=== PATIENT | female | born 1945 | race African-American/Black ===

== ENCOUNTER 2017-01-10 08:26 | Emergency (ER) | payer MEDICARE, OTHER ==
[~2017-01-10] VITALS: Ht 167.6 cm; Wt 85.0 kg
[~2017-01-10 08:26] MED LIST: AMLO2.5T PO; IBUP600T26 PO; IBUP800T23 PO; KCL20 PO; LISI10TA PO; LORTA5 PO; PHEN37.5 PO; UNK PAIN MED; [UNRECOGNIZED DRUG - CODE] XX
[2017-01-10 08:28] VITALS: BP 148/84; PULSE 78; RESP 16; TEMP 97.8; O2SAT 98
[2017-01-10 08:38] VITALS: BP 180/83; PULSE 68
[2017-01-10] MEDS ORDERED: IBUP800T23 PO (08:48)
[2017-01-10] MEDS ORDERED: LISI10TA PO (08:48)
[2017-01-10] MEDS ORDERED: AMLO2.5T PO (08:48)
[2017-01-10] MEDS ORDERED: HYDR-3533 PO (08:57)
--- NOTE | 2017-01-10 08:57 | PD ---
HPI Chief Complaint: Pain: Acute or Chronic Time Seen by Provider: 08:57 Travel History International Travel<30 days: No Contact w/Intl Traveler<30days: No Traveled to known affect area: No History of Present Illness HPI 71-year-old female presents to the emergency department for evaluation of right neck and right shoulder pain for 3 days. Patient states she had the x-ray had to lay on a hard table which she believes contributed to her pain. She also states that she has not been sleeping in her bed, but is sleeping in a recliner chair for the past month. She denies a traumatic injury. The pain is worse with movement. She is taking ibuprofen at home without improvement. Patient denies any paresthesias or anesthesias. No chest pain or shortness of breath. No abdominal pain. No nausea or vomiting. No fevers or chills. Patient reports history of hypertension. PFSH Past Medical History Diminished Hearing: No Hypertension: Yes Tetanus Vaccination: > 5 Years Menopausal: No : 1 Tubal Ligation: Yes Past Surgical History Genitourinary Surgery: Yes (tubal) Social History Alcohol Use: No Tobacco Use: No Substance Use: No Allergies-Medications (Allergen,Severity, Reaction): Coded Allergies: Chocolate (Verified Allergy, Mild, RASH, 01/10/17) Iodine (Verified Allergy, Mild, EDEMA, 01/10/17) Toradol (Verified Adverse Reaction, Mild, NAUSEA, 01/10/17) Reported Meds & Prescriptions Reported Meds & Active Scripts Active Lortab (Hydrocodone-Acetaminophen) 5-325 Mg Tab 1 Tab PO Q6H PRN Reported Lisinopril-Hctz 10-12.5 Mg Tab 1 Tab PO DAILY Ibuprofen 800 Mg Tab 800 Mg PO Q6HR PRN Amlodipine (Amlodipine Besylate) 2.5 Mg Tab 2.5 Mg PO DAILY Review of Systems Except as stated in HPI: all other systems reviewed are Neg Physical Exam Narrative GENERAL: Well-developed well-nourished elderly female elderly female patient. Afebrile. SKIN: Warm and dry. HEAD: Normocephalic. Atraumatic. EYES: No scleral icterus. No injection or drainage. NECK: Supple, trachea midline. No JVD or lymphadenopathy. CARDIOVASCULAR: Regular rate and rhythm without murmurs, gallops, or rubs. Left radial pulse is 2+. Capillary refill is less than 2 seconds to the digits of the right hand. RESPIRATORY: Breath sounds equal bilaterally. No accessory muscle use. Lungs sounds are clear to auscultation. GASTROINTESTINAL: Abdomen soft, non-tender, nondistended. MUSCULOSKELETAL: No cyanosis, or edema. Patient has full range of motion of the right shoulder, pain with movement. She has a normal grasp strength in the right hand. BACK: No obvious deformity. No CVA tenderness. Patient has full range of motion the cervical spine. However, with left lateral rotation, she notices pain in the right trapezius muscle. Data Data Last Documented VS Vital Signs Date Time Temp Pulse Resp B/P Pulse Ox O2 Delivery O2 Flow Rate FiO2 01/10/17 08:38 68 180/83 01/10/17 08:28 97.8 16 98 Orders Orphenadrine Inj (Norflex Inj) (01/10/17 09:00) [facility] Medical Decision Making Medical Screen Exam Complete: Yes Emergency Medical Condition: Yes Medical Record Reviewed: Yes Differential Diagnosis muscle strain versus muscle spasm versus torticollis Narrative Course 71-year-old female presents to the emergency department for evaluation of right neck and shoulder pain for 3 days without traumatic injury. Physical exam is reassuring is consistent with a muscle strain. Patient denies any other symptoms or complaints. Patient is given Norflex 60 mg IM in the emergency department. She'll be discharged with a short-term prescription for Lortab and Robaxin. She is instructed to not take these medications at the same time to prevent drowsiness. The patient verbalizes agreement and understanding. She is to follow with her primary care physician. She is also instructed to use a heating pad on low. Diagnosis Primary Impression: Strain of right trapezius muscle Qualified Code: S46.811A - Strain of right trapezius muscle, initial encounter Referrals: Primary Care Physician call for appointment Patient Instructions: General Instructions, Muscle Strain (ED) Additional Instructions: Heating pad on low for 20 minutes 4-5 times daily. Take Lortab as started as needed for moderate to severe pain. Take ibuprofen for mild to moderate pain. Take Robaxin as instructed as needed for muscle pain. Do not take at the same time as Lortab. Follow-up with your primary care physician. Return to the emergency department for any acute worsening of symptoms. Med/Other Pt SpecificInfo: Prescription(s) given Scripts Methocarbamol (Robaxin)500 Mg Oet429 Mg PO TID PRN (MUSCLE SPASM) #21 TAB Ref 0 Prov:Loren Garcia 01/10/17 Hydrocodone-Acetaminophen (Lortab)5-325 Mg Tab1 Tab PO Q6H PRN (PAIN) #8 TAB Ref 0 Prov:Eliseo Villeda MD 01/10/17 Disposition: 01 DISCHARGE HOME Condition: Stable Loren Garcia Jan 10, 2017 08:57
[2017-01-10] MEDS ORDERED: ORPHENADRINE INJ 60 MG/2 ML AMP IM ONE (09:00)
[2017-01-10] MEDS ORDERED: ROBA500T PO (09:04)
== END 2017-01-10 10:12 | disposition home or self-care (01) ==
LOC: NEPB 08:26
DX: S46.811A Strain of other muscles, fascia and tendons at shoulder and upper arm level, right arm, initial encounter (principal); I10 Essential (primary) hypertension; X58.XXXA Exposure to other specified factors, initial encounter
CPT/HCPCS: 96372; 99283; J2360

== ENCOUNTER 2017-01-12 08:32 | Emergency (ER) | payer MEDICARE, OTHER ==
[~2017-01-12] VITALS: Ht 172.7 cm; Wt 82.0 kg
[~2017-01-12 08:32] MED LIST changes: +HYDR-3533 PO; -IBUP600T26 PO; -KCL20 PO; -LORTA5 PO; -PHEN37.5 PO; +ROBA500T PO; -UNK PAIN MED; -[UNRECOGNIZED DRUG - CODE] XX
[2017-01-12 08:35] VITALS: BP 204/114; PULSE 74; RESP 20; TEMP 97.7; O2SAT 98
[2017-01-12] MEDS ORDERED: CYCL1TAB29 PO (09:21)
--- NOTE | 2017-01-12 09:22 | PD ---
HPI Chief Complaint: Pain: Acute or Chronic Time Seen by Provider: 09:09 Travel History International Travel<30 days: No Contact w/Intl Traveler<30days: No Traveled to known affect area: No History of Present Illness HPI Patient is a pleasant 71-year-old female presents emergency department with complaint of right sided neck pain. For the last now 4-5 days patient has had bad pain in the right side of her neck. She attributes this to having have an x-ray of her knee and having to lay on a hard x-ray table. She also states that she had to move a heavy recliner and was pushing this around the house. She did not lift it. 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 She describes the pain as a burning sensation in the right neck, radiating down the right arm. Associated tightness within the right shoulder/neck. States it hurts to lay on the right side of her body and therefore she is been sleeping in a recliner. Patient was seen here in our emergency department 2 days ago. She was given a dose of Norflex IM while in the ER and states that this was the most effective medication. She was discharged home with Robaxin and Lortab and states that both of these made her nauseous and she only took them once. Patient is back for persistent pain. She has not followed up with her PCP in the interim. Patient is incidentally hypertensive on exam, states that she has not been taking her antihypertensives for the last 2 days because she was nauseous from the Robaxin and have prescribed. She didn't want to "mix the medications". PFSH Past Medical History Hx Anticoagulant Therapy: No Cardiovascular Problems: Yes (HTN) Chemotherapy: No Cerebrovascular Accident: No Diabetes: No Diminished Hearing: No Hypertension: Yes Respiratory: No ?: Unknown Menopausal: No : 1 Tubal Ligation: Yes Past Surgical History Genitourinary Surgery: Yes (tubal) Hysterectomy: No Social History Alcohol Use: No Tobacco Use: No Substance Use: No Allergies-Medications (Allergen,Severity, Reaction): Coded Allergies: Chocolate (Verified Allergy, Mild, RASH, 01/12/17) Iodine (Verified Allergy, Mild, EDEMA, 01/12/17) Toradol (Verified Adverse Reaction, Mild, NAUSEA, 01/12/17) Reported Meds & Prescriptions Reported Meds & Active Scripts Active Flexeril (Cyclobenzaprine HCl) 10 Mg Tab 10 Mg PO TID PRN Robaxin (Methocarbamol) 500 Mg Tab 500 Mg PO TID PRN Lortab (Hydrocodone-Acetaminophen) 5-325 Mg Tab 1 Tab PO Q6H PRN Reported Lisinopril-Hctz 10-12.5 Mg Tab 1 Tab PO DAILY Ibuprofen 800 Mg Tab 800 Mg PO Q6HR PRN Amlodipine (Amlodipine Besylate) 2.5 Mg Tab 2.5 Mg PO DAILY Review of Systems Except as stated in HPI: all other systems reviewed are Neg Physical Exam Narrative GENERAL: Elderly female in no acute distress SKIN: Warm and dry. HEAD: Normocephalic. EYES: Pupils equal and round. No scleral icterus. No injection or drainage. ENT: No nasal bleeding or discharge. Mucous membranes pink and moist. NECK: Supple without bruit. No midline tenderness to palpation of the cervical spine. There is palpable spasm in the right trapezius muscle which reproduces pain, burning down the right arm. Range of motion of the neck is full, albeit with pain. CARDIOVASCULAR: Regular rate and rhythm. Hypertensive RESPIRATORY: No accessory muscle use. GASTROINTESTINAL: Obese MUSCULOSKELETAL: Moves all extremities normally. With external rotation and abduction greater than 90 of the right shoulder patient has reproducible pain. Distal sensation, pulses intact. NEUROLOGICAL: Awake and alert. Normal gait. Normal speech. PSYCHIATRIC: Appropriate mood and affect; insight and judgment normal. Data Data Last Documented VS Vital Signs Date Time Temp Pulse Resp B/P Pulse Ox O2 Delivery O2 Flow Rate FiO2 01/12/17 09:09 92 18 01/12/17 08:35 97.7 204/114 98 Room Air Orders Orphenadrine Inj (Norflex Inj) (01/12/17 09:30) MDM Medical Decision Making Medical Screen Exam Complete: Yes Emergency Medical Condition: Yes Medical Record Reviewed: Yes Differential Diagnosis 71-year-old female here with complaint of right sided neck pain radiating down into the right arm. Symptoms are classic with trapezius muscle spasm with associated cervical radiculopathy. Her symptoms are very much reproducible on exam consistent with musculoskeletal etiology. Narrative Course Patient given Norflex IM. Will discharge to home with Flexeril as patient states that this has been most beneficial for her in the past without side effects. Encouraged ice the area and follow-up with PCP if symptoms persist. Diagnosis Primary Impression: Trapezius muscle spasm Additional Impressions: Cervical radiculopathy Hypertension Qualified Code: I10 - Essential hypertension Referrals: Primary Care Physician as needed Additional Instructions: Stop the Robaxin and Lortab. Take Flexeril and ibuprofen instead. Ice the affected area 20 minutes at a time 3-4 times daily. Follow-up with primary care provider if symptoms persist and return to the ER for the warning signs discussed. Follow-up with primary care provider for blood pressure management. Med/Other Pt SpecificInfo: Prescription(s) given, Med Stopped Scripts Cyclobenzaprine (Flexeril)10 Mg Tab10 Mg PO TID PRN (SPASM) #30 TAB Ref 0 Prov:Tracy Hood MD 01/12/17 Disposition: 01 DISCHARGE HOME Condition: Stable Tracy Hood MD Jan 12, 2017 09:22
[2017-01-12] MEDS ORDERED: ORPHENADRINE INJ 60 MG/2 ML AMP IM ONE (09:30)
[2017-01-12 09:31] VITALS: BP 200/96; PULSE 68
[2017-01-12] MEDS ORDERED: MOTR200T4 PO (09:47)
== END 2017-01-12 10:24 | disposition home or self-care (01) ==
LOC: NEPA 08:32
DX: M62.838 Other muscle spasm (principal); M54.12 Radiculopathy, cervical region; I10 Essential (primary) hypertension
CPT/HCPCS: 96372; 99283; J2360

== ENCOUNTER 2018-02-14 17:41 | Emergency (ER) | payer MEDICARE, OTHER ==
[~2018-02-14] VITALS: Ht 167.6 cm; Wt 114.0 kg
[~2018-02-14 17:41] MED LIST changes: +CYCL10TA PO; +IBUP1TAB7 PO; -IBUP800T23 PO; +MOTR200T4 PO
[2018-02-14 18:08] VITALS: BP 207/87; PULSE 62; RESP 17; TEMP 97.8; O2SAT 100
[2018-02-14] MEDS ORDERED: SODIUM CHLOR 0.9% 1000 ML INJ 1,000 ML IV ONE (18:15)
[2018-02-14] MEDS ORDERED: MECLIZINE HCL 25 MG TAB PO ONE (18:15)
[2018-02-14] MEDS ORDERED: SODIUM CHLORIDE 0.9% FLUSH 10 ML FLUSH IVF PRN (18:15)
[2018-02-14 18:28] VITALS: RESP 17; O2SAT 100
--- NOTE | 2018-02-14 18:35 | PD ---
HPI Chief Complaint: Dizziness Time Seen by Provider: 18:17 Travel History International Travel<30 days: No Contact w/Intl Traveler<30days: No Traveled to known affect area: No History of Present Illness HPI Patient is a 72-year-old female presenting to emerge from for evaluation of dizziness. Patient was having outpatient testing done at [facility], she got up from the table and felt dizzy. She was then transported to [facility] because she could not drive. [facility] then sent her to emergency department for evaluation. Patient states that she feels better now than she did initially. She denies any chest pain, shortness of breath, headache now or prior to the dizziness starting. Patient denies any history of the same. Symptom onset was sudden, symptoms are moderate in nature. There are no alleviating factors other than time. PFSH Past Medical History Hx Anticoagulant Therapy: No Cardiovascular Problems: Yes (hbp) Hypertension: Yes Tetanus Vaccination: > 5 Years Influenza Vaccination: Yes Menopausal: No : 4 Para: 4 : 1 Tubal Ligation: Yes Past Surgical History Genitourinary Surgery: Yes (tubal) Hysterectomy: No Social History Alcohol Use: No Tobacco Use: No Substance Use: No Allergies-Medications (Allergen,Severity, Reaction): Coded Allergies: chocolate flavor (Verified Allergy, Mild, RASH, 02/14/18) iodine (Verified Allergy, Mild, EDEMA, 02/14/18) potassium iodide (Verified Allergy, Mild, EDEMA, 02/14/18) povidone-iodine (Verified Allergy, Mild, EDEMA, 02/14/18) sodium iodide (Verified Allergy, Mild, EDEMA, 02/14/18) sodium iodide (Verified Allergy, Mild, EDEMA, 02/14/18) ketorolac (Verified Adverse Reaction, Mild, NAUSEA, 02/14/18) Reported Meds & Prescriptions Reported Meds & Active Scripts Active Reported Mobic (Meloxicam) 15 Mg Tab 15 Mg PO DAILY Ditropan (Oxybutynin Chloride) 5 Mg Tab 5 Mg PO Q12HR Tylenol-Codeine #3 (Acetaminophen-Codeine) 300-30 mg Tab 1 Tab PO BID Amlodipine (Amlodipine Besylate) 5 Mg Tab 5 Mg PO DAILY Ibuprofen 800 Mg Tab 800 Mg PO TID Review of Systems Except as stated in HPI: all other systems reviewed are Neg Eyes: No: Blurred Vision HENT: Positive: Lightheadedness, No: Headaches Cardiovascular: No: Chest Pain or Discomfort Respiratory: No: Shortness of Breath Gastrointestinal: No: Nausea, Abdominal Pain Genitourinary: No: Dysuria Musculoskeletal: No: Myalgias Neurologic: Positive: Dizziness Physical Exam Narrative GENERAL: Overweight, well-developed, alert -[place] female. Presenting in no acute distress. SKIN: Warm and dry. HEAD: Atraumatic. Normocephalic. EYES: Pupils equal and round. No scleral icterus. No injection or drainage. ENT: No nasal bleeding or discharge. Mucous membranes pink and moist. NECK: Trachea midline. No JVD. CARDIOVASCULAR: Regular rate and rhythm. RESPIRATORY: No accessory muscle use. Clear to auscultation. Breath sounds equal bilaterally. GASTROINTESTINAL: Abdomen soft, non-tender, nondistended. Hepatic and splenic margins not palpable. MUSCULOSKELETAL: Extremities without clubbing, cyanosis, or edema. No obvious deformities. NEUROLOGICAL: Awake and alert. No obvious cranial nerve deficits. Motor grossly within normal limits. Five out of 5 muscle strength in the arms and legs. Normal speech. PSYCHIATRIC: Appropriate mood and affect; insight and judgment normal. Data Data Last Documented VS Vital Signs Date Time Temp Pulse Resp B/P (MAP) Pulse Ox O2 Delivery O2 Flow Rate FiO2 02/14/18 20:02 58 16 183/109 (133) 97 Room Air 02/14/18 18:08 97.8 Orders Orders Electrocardiogram (02/14/18 18:15) Complete Blood Count With Diff (02/14/18 18:15) Comprehensive Metabolic Panel (02/14/18 18:15) Magnesium (Mg) (02/14/18 18:15) Ckmb (Isoenzyme) Profile (02/14/18 18:15) Troponin I (02/14/18 18:15) Ecg Monitoring (02/14/18 18:15) Iv Access Insert/Monitor (02/14/18 18:15) Oximetry (02/14/18 18:15) Meclizine (Antivert) (02/14/18 18:15) Sodium Chloride 0.9% Flush (Ns Flush) (02/14/18 18:15) Sodium Chlor 0.9% 1000 Ml Inj (Ns 1000 M (02/14/18 18:15) Orthostatic Vital Signs (02/14/18 18:15) Ct Brain W/O Iv Contrast(Rout) (02/14/18 ) Clonidine (Catapres) (02/14/18 19:30) CKMB (02/14/18 18:40) CKMB% (02/14/18 18:40) Hip, Uni(Ap&Lat) W Ap Pelvis (02/14/18 ) Admit Order (Ed Use Only) (02/14/18 20:21) Labs Laboratory Tests Test 02/14/18 18:40 White Blood Count 9.2 TH/MM3 Red Blood Count 3.78 MIL/MM3 Hemoglobin 12.3 GM/DL Hematocrit 36.2 % Mean Corpuscular Volume 95.8 FL Mean Corpuscular Hemoglobin 32.5 PG Mean Corpuscular Hemoglobin Concent 34.0 % Red Cell Distribution Width 14.9 % Platelet Count 196 TH/MM3 Mean Platelet Volume 9.1 FL Neutrophils (%) (Auto) 42.2 % Lymphocytes (%) (Auto) 36.8 % Monocytes (%) (Auto) 12.3 % Eosinophils (%) (Auto) 7.7 % Basophils (%) (Auto) 1.0 % Neutrophils # (Auto) 3.9 TH/MM3 Lymphocytes # (Auto) 3.4 TH/MM3 Monocytes # (Auto) 1.1 TH/MM3 Eosinophils # (Auto) 0.7 TH/MM3 Basophils # (Auto) 0.1 TH/MM3 CBC Comment DIFF FINAL Differential Comment Blood Urea Nitrogen 21 MG/DL Creatinine 1.06 MG/DL Random Glucose 99 MG/DL Total Protein 7.9 GM/DL Albumin 2.9 GM/DL Calcium Level 8.8 MG/DL Magnesium Level 2.0 MG/DL Alkaline Phosphatase 143 U/L Aspartate Amino Transf (AST/SGOT) 65 U/L Alanine Aminotransferase (ALT/SGPT) 65 U/L Total Bilirubin 0.5 MG/DL Sodium Level 144 MEQ/L Potassium Level 3.0 MEQ/L Chloride Level 107 MEQ/L Carbon Dioxide Level 31.3 MEQ/L Anion Gap 6 MEQ/L Estimat Glomerular Filtration Rate 62 ML/MIN Total Creatine Kinase 141 U/L Creatine Kinase MB 1.1 NG/ML Troponin I LESS THAN 0.02 NG/ML MDM Medical Decision Making Medical Screen Exam Complete: Yes Emergency Medical Condition: Yes Interpretation(s) Last Impressions Head CT 02/14/18 0000 Signed Impressions: Service Date/Time: Wednesday, February 14, 2018 19:04 - CONCLUSION: 1. No acute intracranial abnormalities. Figueroa Santos MD Laboratory Tests Test 02/14/18 18:40 White Blood Count 9.2 TH/MM3 Red Blood Count 3.78 MIL/MM3 Hemoglobin 12.3 GM/DL Hematocrit 36.2 % Mean Corpuscular Volume 95.8 FL Mean Corpuscular Hemoglobin 32.5 PG Mean Corpuscular Hemoglobin Concent 34.0 % Red Cell Distribution Width 14.9 % Platelet Count 196 TH/MM3 Mean Platelet Volume 9.1 FL Neutrophils (%) (Auto) 42.2 % Lymphocytes (%) (Auto) 36.8 % Monocytes (%) (Auto) 12.3 % Eosinophils (%) (Auto) 7.7 % Basophils (%) (Auto) 1.0 % Neutrophils # (Auto) 3.9 TH/MM3 Lymphocytes # (Auto) 3.4 TH/MM3 Monocytes # (Auto) 1.1 TH/MM3 Eosinophils # (Auto) 0.7 TH/MM3 Basophils # (Auto) 0.1 TH/MM3 CBC Comment DIFF FINAL Differential Comment Blood Urea Nitrogen 21 MG/DL Creatinine 1.06 MG/DL Random Glucose 99 MG/DL Total Protein 7.9 GM/DL Albumin 2.9 GM/DL Calcium Level 8.8 MG/DL Magnesium Level 2.0 MG/DL Alkaline Phosphatase 143 U/L Aspartate Amino Transf (AST/SGOT) 65 U/L Alanine Aminotransferase (ALT/SGPT) 65 U/L Total Bilirubin 0.5 MG/DL Sodium Level 144 MEQ/L Potassium Level 3.0 MEQ/L Chloride Level 107 MEQ/L Carbon Dioxide Level 31.3 MEQ/L Anion Gap 6 MEQ/L Estimat Glomerular Filtration Rate 62 ML/MIN Total Creatine Kinase 141 U/L Creatine Kinase MB 1.1 NG/ML Troponin I LESS THAN 0.02 NG/ML Vital Signs Date Time Temp Pulse Resp B/P (MAP) Pulse Ox O2 Delivery O2 Flow Rate FiO2 02/14/18 18:28 17 100 Room Air 02/14/18 18:25 62 17 100 Room Air 02/14/18 18:08 97.8 62 17 207/87 (127) 100 Differential Diagnosis Vasovagal syncope versus orthostatic hypotension versus arrhythmia versus metabolic abnormality versus other Narrative Course Patient is a 72-year-old female presenting to emerge from for evaluation of a near syncopal episode. Patient is hypotensive and bradycardic on arrival. Labs and imaging ordered and pending. Initial EKG shows sinus bradycardia with a rate of 52. This was reviewed by my attending physician. CBC with no acute findings Chemistry with potassium 3.0, mild transaminitis noted. BUN/creatinine 21/ 1.06. Oral potassium replacement ordered. Patient was given clonidine 0.1 mg p.o. 1 dose for blood pressure [address] the brain shows no acute findings. X-ray of the right hip was ordered and pending. Patient will be placed in the RDU for observation. This was discussed with my attending physician as well as Dr. Underwood. Patient was initially not wanted to stay but her family members encouraged her to be evaluated. Admit orders placed. X-ray of the right hip shows severe osteoarthritis. This was discussed with patient. Diagnosis Primary Impression: Near syncope Additional Impressions: Hypokalemia Bradycardia Admitting Information Admitting Physician Requests: Observation Condition: Stable Winsome Medel [facility] Feb 14, 2018 18:34
[2018-02-14] MEDS ORDERED: TYLETAB34 PO (18:42)
[2018-02-14] MEDS ORDERED: OXYB5TAB8 PO (18:42)
[2018-02-14] MEDS ORDERED: MOBI15TA PO (18:42)
[2018-02-14] MEDS ORDERED: AMLO5TAB2 PO (18:42)
[2018-02-14 18:49] VITALS: BP_SYST 167; BP_SYST 176; BP_SYST 193; BP_DIAS 76; BP_DIAS 81; RESP 17
[2018-02-14 19:12] LABS: AUTOMATED NEUTROPHIL # 3.9 TH/MM3 (1.8-7.7); BASOPHIL # 0.1 TH/MM3 (0-0.2); EOSINOPHIL # 0.7 TH/MM3 (0-0.4); EOSINOPHIL % 7.7 % (0.0-4.0); HEMATOCRIT 36.2 % (35.0-46.0); HEMOGLOBIN 12.3 GM/DL (11.6-15.3); LYMPH % 36.8 % (9.0-44.0); LYMPHOCYTE # 3.4 TH/MM3 (1.0-4.8); MEAN CELL VOLUME 95.8 FL (80.0-100.0); MEAN CORPUSCULAR HEMOGLOBIN 32.5 PG (27.0-34.0); MEAN PLATELET VOLUME 9.1 FL (7.0-11.0); MONO % 12.3 % (0.0-8.0); MONOCYTE # 1.1 TH/MM3 (0-0.9); NEUT % 42.2 % (16.0-70.0); PLATELET COUNT 196 TH/MM3 (150-450); RED BLOOD COUNT 3.78 MIL/MM3 (4.00-5.30); RED CELL DISTRIBUTION WIDTH 14.9 % (11.6-17.2); WHITE BLOOD COUNT 9.2 TH/MM3 (4.0-11.0)
[2018-02-14 19:23] VITALS: BP 201/93
--- NOTE | 2018-02-14 19:23 | RADRPT ---
EXAM DATE/TIME: 02/14/2018 19:04 [facility] COMPARISON: No previous studies available for comparison. INDICATIONS : Dizziness. RADIATION DOSE: 56.35 CTDIvol (mGy) MEDICAL HISTORY : Cardiovascular disease. Hypertension. SURGICAL HISTORY : Tubal ligation. ENCOUNTER: Initial ACUITY: 1 day PAIN SCALE: 0/10 LOCATION: cranial TECHNIQUE: Multiple contiguous axial images were obtained of the head. Using automated exposure control and adj ustment of the mA and/or kV according to patient size, radiation dose was kept as low as reasonably a chievable to obtain optimal diagnostic quality images. DICOM format image data is available electro nically for review and comparison. FINDINGS: CEREBRUM: The ventricles are normal for age. No evidence of midline shift, mass lesion, hemorrhage or acute in farction. No extra-axial fluid collections are seen. POSTERIOR FOSSA: The cerebellum and brainstem are intact. The 4th ventricle is midline. The cerebellopontine angle i s unremarkable. EXTRACRANIAL: The visualized portion of the orbits is intact. SKULL: The calvaria is intact. No evidence of skull fracture. CONCLUSION: 1. No acute intracranial abnormalities. Figueroa Santos MD on February 14, 2018 at 19:17 Board Certified Radiologist. This report was verified electronically.
[2018-02-14] MEDS ORDERED: cloNIDine HCL 0.1 MG TAB PO ONE (19:30)
[2018-02-14 19:35] LABS: ALBUMIN 2.9 GM/DL (3.4-5.0); ALT (GPT) 65 U/L (10-53); AST (GOT) 65 U/L (15-37); BICARBONATE 31.3 MEQ/L (21.0-32.0); BLOOD UREA NITROGEN 21 MG/DL (7-18); CALCIUM 8.8 MG/DL (8.5-10.1); CHLORIDE 107 MEQ/L (98-107); CREATININE 1.06 MG/DL (0.50-1.00); GLOMERULAR FILTRATION RATE 62 ML/MIN (>89); GLUCOSE,RANDOM 99 MG/DL (74-106); SODIUM (NA) 144 MEQ/L (136-145)
[2018-02-14 19:39] LABS: ALKALINE PHOSPHATASE 143 U/L (45-117); TOTAL BILIRUBIN ADULT 0.5 MG/DL (0.2-1.0); TOTAL PROTEIN 7.9 GM/DL (6.4-8.2); TROPONIN I LESS THAN 0.02 NG/ML (0.02-0.05)
[2018-02-14 20:02] VITALS: BP 183/109; PULSE 58; RESP 16; O2SAT 97
[2018-02-14] MEDS ORDERED: ACETAMINOPHEN/HYDROcodone 325 MG/10 MG TAB PO PRN (20:30)
[2018-02-14] MEDS ORDERED: NIFEdipine 30 MG SUSTAINED RELEASE TAB PO ONE (20:30)
[2018-02-14] MEDS ORDERED: ONDANSETRON HCL 4 MG/2 ML VIAL IVP PRN (20:30)
[2018-02-14] MEDS ORDERED: LACTULOSE SYRUP 20 GM/30 ML CUP PO PRN (20:30)
[2018-02-14] MEDS ORDERED: SENNOSIDES 8.6 MG TAB PO PRN (20:30)
[2018-02-14] MEDS ORDERED: SODIUM CHLORIDE 0.9% FLUSH 10 ML FLUSH IV FLUSH PRN (20:30)
[2018-02-14] MEDS ORDERED: ACETAMINOPHEN 325 MG TAB PO PRN (20:30)
[2018-02-14] MEDS ORDERED: MAGNESIUM HYDROXIDE SUSP 30 ML CUP PO PRN (20:30)
[2018-02-14] MEDS ORDERED: ACETAMINOPHEN/HYDROcodone 325 MG/5 MG TAB PO PRN (20:30)
[2018-02-14] MEDS ORDERED: BISACODYL 10 MG SUPP RECTAL PRN (20:30)
[2018-02-14] MEDS ORDERED: traMADol HCL 50 MG TAB PO ONE (20:45)
[2018-02-14] MEDS ORDERED: POTASSIUM CHLORIDE 10 MEQ CONTROLLED RELEASE TAB PO ONE (20:45)
[2018-02-14] MEDS ORDERED: SODIUM CHLORIDE 0.9% FLUSH 10 ML FLUSH IV FLUSH SCH (21:00)
[2018-02-14] MEDS ORDERED: DOCUSATE SODIUM 50 MG/SENNA 8.6 MG TAB PO SCH (21:00)
--- NOTE | 2018-02-14 21:12 | RADRPT ---
EXAM DATE/TIME: 02/14/2018 20:47 [facility] COMPARISON: No previous studies available for comparison. INDICATIONS : Right hip pain for 6 months with no known injury MEDICAL HISTORY : None. SURGICAL HISTORY : None. ENCOUNTER: Initial ACUITY: 4 - 6 months PAIN SCORE: 5/10 LOCATION: Right entire hip FINDINGS: There is advanced osteoarthritis of the right hip. Mild osteoarthritis at the left hip. No acute frac ture or subluxation. Calcified phleboliths in the pelvis. CONCLUSION: 1. Advanced osteoarthritis of the right hip with joint space narrowing, sclerosis, subchondral cyst f ormation and osteophytes. Figueroa Santos MD on February 14, 2018 at 21:10 Board Certified Radiologist. This report was verified electronically.
[2018-02-15] MEDS ORDERED: NIFEdipine 30 MG SUSTAINED RELEASE TAB PO SCH (09:00)
[2018-02-15] MEDS ORDERED: amLODIPine BESYLATE 5 MG TAB PO SCH (09:00)
--- NOTE | 2018-02-15 17:00 | EKG ---
Date Performed: 02/14/2018 Time Performed: 18:35:24 PTAGE: 72 years EKG: SINUS BRADYCARDIA MODERATE INTRAVENTRICULAR CONDUCTION DELAY VOLTAGE CRITERIA FOR LV[facility] [employer] ine artifact Compared to previous tracing, the patient is now bradycardic. ABNORMAL ECG PREVIOUS TRACING : 01/18/2011 11.13 DOCTOR: Maryann Fontaine Interpretating Date/Time 02/15/2018 16:59:16
== END 2018-02-14 23:01 | disposition left against medical advice (07) ==
LOC: NEPC 17:41 → NEDA 20:26 → UNDOADMOB 20:26 → UNDODISOB 23:01
DX: R55 Syncope and collapse (principal); E87.6 Hypokalemia; R00.1 Bradycardia, unspecified; I10 Essential (primary) hypertension
CPT/HCPCS: 70450; 73502; 80053; 82550; 82552; 83735; 84484; 85025; 93005; 96360; 99285; J7030